=== PATIENT | female | born 1955 | race Caucasian/White ===

== ENCOUNTER → 2019-08-29 | Outpatient (CLI) | payer OTHER ==
[~2019-08-29] MED LIST: AMLO5TAB10 PO; CALC-161 PO; IBAN150T15 PO; IBUP-1060 PO; LISI-130 PO; MULT1TAB52 PO
--- NOTE | 2019-08-29 16:12 | EKG ---
[facility] [address] [place] [address] Test Date: 2019-08-29 Test Time: 16:05:47 Pat Name: ASHA SADLER Department: Room: Gender: F Case Supervisor: : [id number] Requested By: LINETTE FIORE Order Number: [id number] Reading MD: Alphonso Robertson Measurements Intervals Gause Rate: 78 P: 55 OH: 122 QRS: 19 QRSD: 78 T: 10 QT: 366 QTc: 421 Interpretive Statements SINUS RHYTHM Electronically Signed On 08-30-2019 14:16:13 PASSENGER SOLICITOR by Alphonso Robertson
[2019-08-29 16:29] LABS: BASO % 1 % (0-3); EOS # 0.1 x10^3/uL (0.0-0.7); EOS % 3 % (0-3); HEMATOCRIT 39.9 % (36.0-47.0); HEMOGLOBIN 13.2 g/dL (12.0-15.5); LYMPH # 1.6 x10^3/uL (1.0-4.8); LYMPH % 34 % (24-48); MEAN CORPUSCULAR HEMOGLOBIN 29 pg (25-35); MEAN CORPUSCULAR HGB CONC 33 g/dL (31-37); MEAN CORPUSCULAR VOLUME 88 fL (79-100); MONO # 0.5 x10^3/uL (0.0-1.1); MONO % 11 % (0-9); NEUT # 2.5 x10^3/uL (1.8-7.7); NEUT % 52 % (31-73); PLATELET COUNT 191 x10^3/uL (140-400); RED BLOOD COUNT 4.52 x10^6/uL (3.50-5.40); RED CELL DISTRIBUTION WIDTH 14.1 % (11.5-14.5); WHITE BLOOD COUNT 4.8 x10^3/uL (4.0-11.0)
[2019-08-29 16:54] LABS: ALBUMIN 4.1 g/dL (3.4-5.0); CALCIUM 9.2 mg/dL (8.5-10.1); CREATININE 0.7 mg/dL (0.6-1.0); GFR 84.5; TOTAL BILIRUBIN 0.3 mg/dL (0.2-1.0); TOTAL PROTEIN 8.2 g/dL (6.4-8.2)
== END | disposition home or self-care (01) ==
LOC: SURGPAT 13:40
PROVIDERS: ATTEND Neurological Surgery
DX: Z01.818 Encounter for other preprocedural examination (principal); M47.27 Other spondylosis with radiculopathy, lumbosacral region; Z91.041 Radiographic dye allergy status; Z98.1 Arthrodesis status
CPT/HCPCS: 36415; 80053; 85025; 87641; 93005

== ENCOUNTER 2019-09-07 08:27 | Observation (INO) | payer OTHER ==
[~2019-09-07] VITALS: Ht 157.5 cm; Wt 54.4 kg
[~2019-09-07 08:27] MED LIST changes: +BACITRACIN 50,000 UNIT in IV NORMAL SALINE 1000ML BAG 1,000 ML IRR ONE; +BUPIVACAINE-EPI 0.5%-1:200000 MPF 30 ML VIAL. ONE; +GELATIN SPONGE SIZE 100. ONE; +HYDROmorphone 2 MG/ML VIAL IV PRN; +IV RINGERS,LACTATED 1000ML 1,000 ML IV SCH; +KETOROLAC 60 MG/2 ML VIAL. ONE; +LIDOCAINE 1% PF 2 ML VIAL. ID PRN; +MORPHINE SULFATE 2 MG/ML VIAL. IV PRN; +ONDANSETRON PF 4 MG/2 ML VIAL. IV PRN; +PROCHLORPERAZINE 10 MG/2 ML VIAL. IV PRN; +THROMBIN TOPICAL 20,000 UNIT SPRAY.SYRN KIT TP ONE; +fentaNYL PF VIAL 100 MCG/2 ML VIAL IV PRN
--- NOTE | 2019-09-07 09:04 | HP ---
ADMIT DATE: 09/07/2019 DATE OF SURGERY: 09/07/2019 HISTORY OF PRESENT ILLNESS: The patient is a pleasant 64-year-old who complains of lower back and left hip pain. She did improve with epidural steroid injections temporarily and oral steroids.She had multiple hip injections with no lasting improvement. The problem began in January without inciting event. She has been to the ER because of pain. She has been limiting her activities which helps minimally. PAST MEDICAL HISTORY: Blood clots, hypertension, rheumatic fever and osteoporosis. PAST SURGICAL HISTORY: Lumbar surgery including fusion L5-S1. FAMILY HISTORY: Cancer and hypertension. SOCIAL HISTORY: Employed at the [employer]. . Exercises daily. Denies substance abuse. Denies tobacco use. Drinks 2-3 alcoholic drinks daily. Drinks coffee. ALLERGIES: TO IODINE. CURRENT MEDICATIONS: Amlodipine, lisinopril, Citracal emergency, ibandronate. REVIEW OF SYSTEMS: A 12-point review of systems was obtained and is noncontributory except for that mentioned above. PHYSICAL EXAMINATION: NEUROSURGERY EXAMINATION: GENERAL APPEARANCE: Alert and pleasant, no acute distress. HEAD: Normocephalic and atraumatic. SKIN: Warm and dry. MUSCULOSKELETAL: Lumbar paraspinal muscle bulk is normal, restricted range of motion of the lumbar spine, [id number] tenderness of the lower lumbar spine with palpation, normal range of motion of the lower extremities bilaterally. EXTREMITIES: No clubbing, cyanosis or edema. NEUROLOGIC: Alert and oriented x 3, normal recent and remote memory, strength 5/5 in bilateral lower extremities. Sensory was intact to light touch in lower extremities bilaterally. Reflexes are present and symmetric in the bilateral lower extremities. Negative straight leg raising bilaterally. Normal gait. IMAGING: I reviewed on the myelogram, postoperative changes were seen at L5-S1. She does have a buildup of calcification in the left lateral recess at L5-S1, which is deviated to the left of the S1 nerve root. At L1-L2 and L2-L3, which are in the region of significant scoliosis, there is foraminal narrowing on the left side. ASSESSMENT: 1. Arthrodesis status. 2. Other spondylosis with radiculopathy, lumbosacral region. PLAN: I spoke with her about treatment options. At this point, I told her I was willing to operate and remove the hardware at L5-S1 on the left and decompress the left S1 root, removing calcification, which has developed. I explained that I would not operate at L1-L2, L2-L3 and that surgery would be destabilizing for her already scoliotic spine. I told her that there is a significant chance that a surgery with the decompression of this region may not help her and she needed to be prepared for that. She understands. She would like to go ahead with surgery. We spoke about the technique, risks and expected postoperative course. She understands. We will make the arrangements. LINETTE FIORE MD DR: BISMARK/miracle JOB#: [id number] / [id number] DEVIKA
[2019-09-07] MEDS ORDERED: PROPOFOL 50 ML IV ONE ×3 (10:09→16:26)
[2019-09-07] MEDS ORDERED: DEXAMETHASONE SOD PHOS 20 MG/5 ML VIAL. ONE (10:09)
[2019-09-07] MEDS ORDERED: ONDANSETRON PF 4 MG/2 ML VIAL. ONE (10:09)
[2019-09-07] MEDS ORDERED: LIDOCAINE 2% PF 5 ML VIAL. ONE (10:09)
[2019-09-07] MEDS ORDERED: PROPOFOL 20 ML IV ONE (10:09)
[2019-09-07] MEDS ORDERED: ROCURONIUM 50 MG/5 ML VIAL. ONE (10:10)
[2019-09-07] MEDS ORDERED: REMIFENTANIL 1 MG VIAL. IV ONE ×2 (10:10→14:39)
[2019-09-07] MEDS ORDERED: MINERAL OIL/PETROLATUM,WHITE OPHTH OINT 3.5GM TUBE. ONE (10:39)
[2019-09-07] MEDS ORDERED: MIDAZOLAM HCL/PF 2 MG/2 ML VIAL. ONE (11:57)
[2019-09-07] MEDS ORDERED: PHENYLEPHRINE 10 MG/ML VIAL. ONE (12:40)
[2019-09-07] MEDS ORDERED: GLYCOPYRROLATE 1 MG/5 ML VIAL. ONE (13:01)
[2019-09-07] MEDS ORDERED: ESMOLOL 100 MG/10 ML VIAL. IVP ONE (13:20)
[2019-09-07] MEDS ORDERED: SEVOFLURANE > 120 MINUTES. IH ONE (13:20)
[2019-09-07] MEDS ORDERED: POTASSIUM CL 20MEQ D5-0.45NACL 1,000 ML IV SCH (14:04)
[2019-09-07] MEDS ORDERED: fentaNYL PF VIAL 100 MCG/2 ML VIAL IVP PRN (14:15)
[2019-09-07] MEDS ORDERED: oxyCODONE/APAP 5/325 1 TAB TABLET PO PRN (14:15)
[2019-09-07] MEDS ORDERED: diphenhydrAMINE HCL 25 MG CAPSULE PO PRN (14:15)
[2019-09-07] MEDS ORDERED: CALCIUM CARBONATE 500 MG TAB.CHEW PO PRN (14:15)
[2019-09-07] MEDS ORDERED: NON FORMULARY ITEM (Ibandronate Sodium (Boniva) 150 MG) PO SCH (14:15)
[2019-09-07] MEDS ORDERED: ONDANSETRON PF 4 MG/2 ML VIAL. IVP PRN (14:15)
[2019-09-07] MEDS ORDERED: ACETAMINOPHEN 325 MG TABLET. PO PRN (14:15)
[2019-09-07] MEDS ORDERED: MAGNESIUM HYDROXIDE 2,400 MG/30 ML ORAL.SUSP. PO PRN (14:15)
[2019-09-07] MEDS ORDERED: NALOXONE 0.4 MG/ML VIAL. IV PRN (14:15)
[2019-09-07] MEDS ORDERED: 0.9 % SODIUM CHLORIDE 10 ML DISP.SYRIN. IV PRN (14:15)
[2019-09-07] MEDS ORDERED: ZOLPIDEM 5 MG TABLET. PO PRN (14:15)
[2019-09-07] MEDS ORDERED: MAG HYDROX/ALUMINUM HYD/SIMETH 30 ML ORAL.SUSP PO PRN (14:15)
[2019-09-07] MEDS ORDERED: 0.9 % SODIUM CHLORIDE 20 ML VIAL. IJ ONE ×2 (14:39)
--- NOTE | 2019-09-07 14:56 | RAD ---
CT lumbar spine without IV contrast. INDICATION: Radiculopathy. BrainLab protocol. TECHNIQUE: Noncontrast helical CT images of the lumbar spine were obtained at 1 mm slice thickness were reviewed in multiplanar reformats in bone and soft tissue algorithm reconstructions. COMPARISON: Lumbar spine CT of 08/26/2006. FINDINGS: Rightward convexity scoliotic curvature apex at L1-L2 is present with a Resendiz angle of 24.9 degrees as measured from the superior endplate of L1 to the inferior endplate of L3. No anterolisthesis a left listhesis is evident. The bones are well-mineralized and show no fracture or aggressive appearing osseous lesions. Brown and pedicle screw construct fusion of the lumbosacral junction remains present. The discs show variable degrees of narrowing most moderate on the right at L3-L4 and L4-L5 but also asymmetrically on the left at L1-L2 and L2-L3. The spinal canal shows no bony central canal stenosis and the paraspinal soft tissues reveal no additional unexpected findings. IMPRESSION: Dextroscoliosis of the lumbar spine with multilevel degenerative spondylosis. No fracture, traumatic malalignment or aggressive osseous lesion status post lumbosacral junction hardware fusion. Electronically signed by: Jonnie Wild MD (09/07/2019 2:53 PM) [facility]
[2019-09-07] MEDS ORDERED: DESFLURANE > 120 MINUTES IH ONE (16:56)
[2019-09-07 18:15] VITALS: BP 136/77
[2019-09-07] MEDS: oxyCODONE/APAP 5/325 1 TAB TABLET PO PRN (18:38)
[2019-09-07 19:00] VITALS: BP 135/77
[2019-09-07 19:30] VITALS: BP 158/77
--- NOTE | 2019-09-07 19:49 | OP ---
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 OPERATION PERFORMED: Reop L5-S1 laminectomy and transfacet exposure with decompression of the left S1 and L5 nerve roots. Removal of hardware L5, S1 left. SURGEON: Justin Ivy M.D. ASPHALT MIXING MACHINE OPERATOR: ANH Lyman assisted with the surgery. She assisted with the exposure, microdecompression as well as the closure. The operation was done with multimodality monitoring including EMG, SSEP, and fluoroscopy was also used as well as BrainLAB guidance. OPERATIVE INDICATIONS: The patient is a very pleasant 64-year-old who a number of years ago underwent lumbar fusion and did well. She then developed increasing back and left hip pain and has been through a considerable amount of conservative measures. On imaging studies, she does have significant scoliosis above the lower lumbar region. At L5-S1, there is hypertrophic bone in the lateral recess and the region of her previous fusion, deviation of the left S1 nerve root. She also had neuroforaminal narrowing at L2-L3 and L1-L2 and I told her that to deal with those regions would require a long instrumented lumbar fusion. She understood rationale to decompress the root to see if this would give her some relief. She strongly wished to go ahead. She understood the surgery, the risks, the technique, and expected postoperative course. DESCRIPTION OF PROCEDURE: Following general endotracheal anesthesia, the patient was positioned prone on the Joseluis table. Lumbar region prepped and draped in standard fashion. ROBERT hose and AV impulse boots were applied for DVT prophylaxis. The microscope was draped. Fluoroscopy was draped and brought into field. Monitoring was established. Ancef 2 grams was given less than 1 hour prior to initiation of surgery. In the left iliac crest, pins were placed to attach to the BrainLAB start and the BrainLAB system was initialized. I then opened her lateral incision at L5-S1 on the left, dissected down the skin and subcutaneous tissue, gently passed through the muscle and exposed her previously placed hardware. I removed the hardware and then bringing in the operating microscope, I gradually worked medially and created an exposure of the dura and visualized the exiting L5 root and I did remove the inferior aspect of the pedicle at this location to give the nerve more room. I worked inferiorly and drilled through the thin laminar bone medial to the facet at S1 and gently drilled down through this removing scar, then exposing the exiting S1 root. I then thinned the bone above this and gradually worked superiorly to decompress the root. There was a large amount of hypertrophic bone, which was beneath the takeoff of the S1 root and I gently drilled this material holding the nerve roots back and gradually removed this material to fully decompress the entire region. At this point, then I could visualize the L5 root, I could visualize the S1 root as it moved laterally and inferiorly. The region was very well decompressed. I irrigated copiously. I did use small amounts of bone wax as well as bipolar cautery for hemostasis, but hemostasis was never a problem during the case. I irrigated and obtained excellent hemostasis after removing the hardware. I closed the wound in layers with absorbable suture and skin was closed with a 4-0 subcuticular stitch. I felt the surgery went very well. Monitoring was relatively quiet throughout the operation other than some background noise, there were no problems encountered. Anesthesia escoto, she did very well with the surgery. JUSTIN IVY MD DR: BISMARK/miracle JOB#: [id number] / [id number] DEVIKA
[2019-09-07] MEDS: LISINOPRIL 20 MG TABLET PO SCH (20:35)
[2019-09-07] MEDS: amLODIPine BESYLATE 5 MG TABLET PO SCH (20:35)
[2019-09-07] MEDS: DOCUSATE SODIUM 100 MG CAPSULE. PO SCH (20:35)
[2019-09-07] MEDS: CALCIUM CARB/VIT D3 500/200 TABLET. PO SCH (20:36)
[2019-09-07] MEDS: METHOCARBAMOL 750 MG TABLET PO SCH (20:36)
[2019-09-07 21:00] VITALS: BP 132/63
[2019-09-07 22:00] VITALS: BP 136/79
[2019-09-07 23:00] VITALS: BP 124/62
[2019-09-08 03:00] VITALS: BP 114/47
[2019-09-08 07:00] VITALS: BP 117/69
[2019-09-08] MEDS: CALCIUM CARB/VIT D3 500/200 TABLET. PO SCH (08:34)
[2019-09-08] MEDS: METHOCARBAMOL 750 MG TABLET PO SCH ×2 (08:35→14:00)
[2019-09-08] MEDS: LISINOPRIL 20 MG TABLET PO SCH (08:35)
[2019-09-08] MEDS: amLODIPine BESYLATE 5 MG TABLET PO SCH (08:35)
[2019-09-08] MEDS: DOCUSATE SODIUM 100 MG CAPSULE. PO SCH (08:35)
[2019-09-08] MEDS: oxyCODONE/APAP 5/325 1 TAB TABLET PO PRN (08:36)
--- NOTE | 2019-09-08 08:56 | NUR ---
SW following. Discussed with RN. Pt is from home with , doing fine getting around here. PT has been ordered. RN anticipates possible discharge home today with self care. SW will continue to follow.
[2019-09-08] MEDS ORDERED: MULTIVITAMIN with MINERAL TABLET. PO SCH (09:00)
[2019-09-08 11:00] VITALS: BP 116/42
--- NOTE | 2019-09-08 12:35 | DISCH ---
DISCHARGE INSTRUCTIONS Condition on Discharge Condition on Discharge: Stable Activity After Discharge Activity Instructions for Disc: Activity as tolerated, Avoid exertion Other activity instructions: no driving for a week Bathing Instructions: Shower-keep dressing dry, No Tub Bath until see Lifting Instructions after Dis: No heavy lifting, No pulling or pushing, Do not lift >10 pounds Diet after Discharge Additional Diet Restrictions: resume home diet Wound Incision Care Wound/Incision Care: Ice to area for comfort Other wound/incision instructi: may remove dressing in 48 hours if dry then may shower, no soaking Contacting the after DC Call your doctor for: Concerns you may have Follow-Up Follow up with: Dr. Fiore's nurse 09/21/19 @ 1130 LINETTE FIORE MD Sep 08, 2019 12:35
[2019-09-08] MEDS ORDERED: OXYC1TAB15 PO (12:58)
[2019-09-08] MEDS ORDERED: METH750T2 PO (12:58)
[2019-09-08] MEDS ORDERED: DOCU-153 PO (12:58)
--- NOTE | 2019-09-08 13:35 | DS ---
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 OPERATION PERFORMED: Reop L5-S1 laminectomy and transfacet exposure with decompression of the left S1 and L5 nerve roots. HISTORY OF PRESENT ILLNESS: The patient is a pleasant 64-year-old who a number of years ago underwent lumbar fusion and did well. She then several months ago developed increasing back and left hip pain and went through a considerable amount of conservative measures. On imaging studies, she does have significant scoliosis above the lumbar fusion. At L5-S1, there was hypertrophic bone in the lateral recess and the region of her previous fusion with deviation of the left S1 nerve root. She had neural foraminal narrowing at L2-L3 and L1-L2. I told her to deal with those regions, would require a long instrumented lumbar fusion. She understood the rationale to just decompress the root at L5-S1 and see if this would give her some relief. We spoke about the surgery, the risk and the expected postoperative course. She wished to go ahead. HOSPITAL COURSE: She was admitted to the floor postoperatively where she has done well. She has been up ambulating in the room and in the halls. Physical therapy was initiated. Instruction was given to her regarding her activities. Her pain is well controlled and she is in good condition to discharge home. DISCHARGE MEDICATIONS: She will resume her medications per the MRAD. DISCHARGE INSTRUCTIONS: She was instructed regarding her incision care, activity restrictions and expectations for the next several weeks. She will follow up in our office in 2 weeks. She understands to call with any questions or concerns. LINETTE FIORE MD DR: KERMIT/miracle JOB#: [id number] / [id number]
--- NOTE | 2019-09-08 14:30 | NUR ---
Discharge Note: ASHA SADLER S4 TACOMA Discharge instructions and discharge home medications reviewed with Patient and a copy given. All questions have been answered and understanding verbalized. The following instructions and handouts were given: information about follow up appointments, incisional care, medications, etc. Discontinued lines and drains: IV line in right hand removed, catheter tip intact. Patient discharged to home with self care with , patient ambulated to discharge vehicle.
--- NOTE | 2019-09-09 18:06 | PATHOLOGY ---
[facility] Accession Number: [id number] . 01 Material submitted: . vertebral column - LUMBAR DECOMPRESSION . 01 Clinical history: . Lumbar arthrodesis, lumbar spondylosis with radiculopathy. . 02 Diagnosis: Segments of fibrocartilaginous, fibroadipose, and skeletal muscle tissue and bone, lumbar decompression: - Degenerative changes of fibrocartilaginous tissue. . (JP:mm; 09/09/2019) [facility] 09/09/2019 1631 Local . 02 Comment: There is no evidence of an acute inflammatory process or malignancy. . (JPM:mml; 09/09/2019) . 02 Electronically signed: . Nick Goetz MD, Pathologist NPI- [id number] . 01 Gross description: . Received in formalin labeled "Tayla May, lumbar decompression" is a 2.8 x 2.5 x 1.0 cm aggregate of payne-white soft tissue and bony tissue fragments. Financial Recruiter tissue is submitted in cassette A1 following decalcification. ([facility] [place]; 09/08/2019) [facility] 09/09/2019 1628 Local . 02 Pathologist provided ICD-10: M43.06, M54.16 . 02 CPT . 215940, [id number] Specimen Comment: A courtesy copy of this report has been sent to [phone], [phone] Specimen Comment: [phone] Specimen Comment: Report sent to / DR REED Performed at: 01 [facility] [address], [place], [place] [id number] MD Chad Degroot MD Phone: [phone] Performed at: 02 [facility] [address], [place] [id number] MD Nick Goetz MD Phone: [phone]
== END 2019-09-08 14:30 | disposition home or self-care (01) ==
LOC: SURG 08:27 → 4 NORTH 17:20
PROVIDERS: ADMIT Neurological Surgery; ATTEND Neurological Surgery
DX: M48.08 Spinal stenosis, sacral and sacrococcygeal region (principal); I10 Essential (primary) hypertension; Z98.890 Other specified postprocedural states
CPT/HCPCS: 63047; 72131; 88304; 88311; 97116; 97162; 97530; A7015; G0378; G0379; J0696; J1100; J1885; J2001; J2250; J2405; J2704; J3490; J7030